=== PATIENT | male | born 1990 | race African-American/Black ===

== ENCOUNTER 2017-01-20 18:21 | Emergency (ER) | payer OTHER ==
[2017-01-20 18:28] VITALS: RESP 16; TEMP 97.9
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
[2017-01-20 20:18] VITALS: BP 116/72; PULSE 68; O2SAT 96
== END 2017-01-20 20:18 | disposition home or self-care (01) ==
PROC: 2W28X4Z Dressing of Right Upper Extremity using Bandage (ICD-10-PCS; principal; 2017-01-20)
DX: T23.261A Burn of second degree of back of right hand, initial encounter (principal); T31.0 Burns involving less than 10% of body surface; Y27.9XXA Contact with unspecified hot objects, undetermined intent, initial encounter; Y99.0 Civilian activity done for income or pay; Y93.G3 Activity, cooking and baking